=== PATIENT | male | born 1980 | race Two or more races ===

== ENCOUNTER 2018-11-05 16:57 | Emergency (ER) | payer SELFPAY ==
[~2018-11-05] VITALS: Ht 165.1 cm; Wt 56.0 kg
[2018-11-05] MEDS ORDERED: SODIUM CHLORIDE 0.9% 1,000 ML IV ONE ×2 (17:56)
[2018-11-05] MEDS ORDERED: ONDANSETRON HCL 4MG/2ML INJ IV STA (17:56)
[2018-11-05] MEDS ORDERED: FOLIC ACID 1 MG, THIAMINE HCL 100 MG, MVI, ADULT NO.1 10 ML in DEXTROSE 5% WATER 1,000 ML IV ONE ×4 (18:00)
[2018-11-05] MEDS ORDERED: LORAZEPAM 2MG/ML CPJ IV ONE ×2 (18:30→19:30)
[2018-11-05] MEDS ORDERED: OLANZAPINE 10 MG/VIAL IM ONE (19:30)
[2018-11-05 20:44] LABS: BASOPHILS % 0.8 % (0.0-2.0); EOSINOPHILS % 0.6 % (0.0-5.0); HEMATOCRIT. 44.3 % (42.0-52.0); HEMOGLOBIN. 13.6 g/dL (14.0-18.0); LYMPHOCYTES % 28.6 % (20.0-50.0); MEAN CORPUSCULAR HEMOGLOBIN 25.6 pg (28.0-32.0); MEAN CORPUSCULAR VOLUME 83.4 fL (80.0-94.0); MEAN PLATELET VOLUME 9.1 fl (7.4-10.4); MONOCYTES % 6.8 % (2.0-8.0); NEUTROPHILS % 63.2 % (40.0-76.0); PLATELET 380 x1000/uL (130-400); RED BLOOD CELL COUNT 5.32 mill/uL (4.7-6.1); RED CELL DISTRIBUTION WIDTH 20.4 % (11.6-14.6)
[2018-11-05 20:47] LABS: CHLORIDE 115 mEq/L (98-107)
[2018-11-05 20:59] LABS: CREATINE KINASE 258 IU/L (39-308)
[2018-11-05 21:05] LABS: ETHANOL BLOOD 442 mg/dL
[2018-11-05 21:05] LABS: CLARITY URINE CLOUDY (CLEAR); COLOR URINE YELLOW (YELLOW); KETONES URINE NEGATIVE (NEGATIVE); LEUKOCYTE ESTERASE URINE 3+ (NEGATIVE); NITRITE URINE POSITIVE (NEGATIVE); OCCULT BLOOD URINE TRACE (NEGATIVE); PROTEIN URINE TRACE (NEGATIVE); UROBILINOGEN URINE 0.2 E.U./dL (0.2-1.0)
[2018-11-05] MEDS ORDERED: CEFTRIAXONE 1 G PREMIX 50 ML IV ONE (21:45)
[2018-11-05] MEDS ORDERED: THIAMINE HCL 100 MG/1 ML 2ML VIAL ONE (22:40)
[2018-11-05] MEDS ORDERED: ONDANSETRON HCL 4MG/2ML INJ IV NR (23:00)
[2018-11-06 09:15] VITALS: BP 98/50
== END 2018-11-06 09:10 | disposition home or self-care (01) ==
LOC: ER 16:57
DX: G92 Toxic encephalopathy (principal); T51.91XA Toxic effect of unspecified alcohol, accidental (unintentional), initial encounter; N39.0 Urinary tract infection, site not specified; Z93.3 Colostomy status; Y92.89 Other specified places as the place of occurrence of the external cause
CPT/HCPCS: 36415; 70450; 80053; 80307; 80320; 80329; 81003; 82140; 82550; 83690; 84443; 84484; 85025; 87077; 87086; 87186; 93005; 96365; 96366; 96368; 96372; 96375; 96376; 99284; J0696; J2060; J2405; J3411; J3490; J7030; J7070; G0480